=== PATIENT | male | born 1985 | race African-American/Black ===

== ENCOUNTER 2017-05-01 01:04 | Observation (INO) | payer SELFPAY ==
[~2017-05-01] VITALS: Ht 188 cm; Wt 165.3 kg
[2017-05-01 01:49] LABS: HEMATOCRIT 46.7 % (38.0-50.0); MCH 27.7 PG (29.0-34.0); MCHC 34.5 G/DL (30.0-36.0); MCV 80.4 FL (86-99); MEAN PLAT.VOLUME 10.1 uM^3 (9.0-12.4); PLATELET COUNT 243 K/uL (156-360); RBC DIS.WIDTH-CV 13.2 % (11.8-14.6); RBC DIS.WIDTH-SD 37.6 % (39-53); RED BLOOD COUNT 5.81 M/uL (4.00-5.50); WHITE BLOOD COUNT 10.1 K/uL (4.1-10.2)
[2017-05-01 01:58] LABS: CHLORIDE 103 mEq/L (99-109); POTASSIUM 3.6 mEq/L (3.7-5.4); SODIUM 143 mEq/L (136-147)
[2017-05-01 02:00] LABS: GLUCOSE 101 mg/dL (70-99)
[2017-05-01 02:01] LABS: ANION GAP 13 MEQ/L (2-14)
[2017-05-01 02:02] LABS: TOTAL BILIRUBIN 0.4 mg/dL (0.0-1.0)
[2017-05-01 02:03] LABS: ALKALINE PHOSPHATASE 79 IU/L (3-129)
[2017-05-01 02:05] LABS: UREA NITROGEN (BUN) 16 mg/dL (9-23)
[2017-05-01 02:07] LABS: LIPASE 41 U/L (1.0-51.0)
[2017-05-01 02:09] LABS: GFR ESTIMATE (CALCULATED) > 59 mL/min/ (58.99-99999)
[2017-05-01 04:35] LABS: ADD MIUA? YES; BILIRUBIN NEGATIVE; BLOOD NEGATIVE; COLOR YELLOW ((YELLOW)); GLUCOSE (STRIP) NEGATIVE; KETONES NEGATIVE; LEUKOCYTES NEGATIVE; NITRITE NEGATIVE; PROTEIN (STRIP) 100; SPECIFIC GRAVITY 1.033 (1.000-1.030); UROBILINOGEN 0.2 MG/DL (0.2-1.0)
[2017-05-01 04:38] LABS: BACTERIA NONE SEEN /HPF; EPITHELIAL CELLS NONE SEEN /HPF; MUCUS TRACE /LPF; RED BLOOD CELLS 0-5 /HPF (0-5); UCUL ADDED? NO; WHITE BLOOD CELLS 0-5 /HPF (0-5)
[2017-05-01 05:32] LABS: INTER. NORMALIZED RATIO 0.9; PROTHROMBIN TIME 10.4 SEC (10.2-12.9)
[2017-05-01 05:35] LABS: PTT 38.9 SEC (25-37)
[2017-05-01 05:41] LABS: SERUM ETHYL ALCOHOL < 10 mg/dL
[2017-05-01] MEDS ORDERED: ADVIL,NUPRIN,M200 MG PO (07:37)
[2017-05-01 08:07] LABS: HEMATOCRIT 46.9 % (38.0-50.0); MCV 80.3 FL (86-99)
[2017-05-01 15:45] VITALS: BP 182/93
[2017-05-01 17:41] VITALS: BP 170/88
[2017-05-01 19:21] VITALS: BP 145/82
[2017-05-01 20:19] LABS: HEMATOCRIT 46.1 % (38.0-50.0); MCV 79.8 FL (86-99)
[2017-05-01 23:52] VITALS: BP 152/86
[2017-05-02 00:21] LABS: AMPHETAMINE NEGATIVE (500 ng/mL); BARBITURATES NEGATIVE (200 ng/mL); BENZODIAZEPINES NEGATIVE (150 ng/mL); COCAINE NEGATIVE (150 ng/mL); METHADONE NEGATIVE (200 ng/mL); METHAMPHETAMINE NEGATIVE (500 ng/mL); OPIATES (MORPHINE) NEGATIVE (100 ng/mL); OXYCODONE NEGATIVE (100 ng/mL); PHENCYCLIDINE NEGATIVE (25 ng/mL); PROPOXYPHENE NEGATIVE (300 ng/mL); THC CANNABINOIDS PRESUMPTIVE POSITIVE (50 ng/mL); TRICYCLIC ANTIDEPRESSANTS NEGATIVE (300 ng/mL)
[2017-05-02 00:22] LABS: ADD MEDTOX COMMENT Y; INTERNAL CONTROLS VALID? YES
[2017-05-02 02:24] LABS: AMPHETAMINES QUANT VALUE 0 NG/ML; BARBITUATES QUANT VALUE 0 NG/ML; BENZODIAZEPINES QUANT VALUE 0 NG/ML; BENZODIAZEPINES, URINE SCREEN Negative (200 ng/mL); PHENCYCLIDINE QUANT VALUE 0 NG/ML
[2017-05-02 03:54] VITALS: BP 161/91
[2017-05-02 05:21] LABS: HEMATOCRIT 47.2 % (38.0-50.0); MCV 79.7 FL (86-99)
[2017-05-02 09:10] VITALS: BP 176/114
[2017-05-02] MEDS ORDERED: PANTOPRAZOLE SO40 MG PO (10:13)
[2017-05-02] MEDS ORDERED: AMLODIPINE BESY10 MG PO (10:13)
[2017-05-02] MEDS ORDERED: LOPRESSOR25 MG PO (10:14)
== END 2017-05-02 13:00 | disposition home or self-care (01) ==
LOC: EME 01:04 → EDOF 05:27 → 5WEST 05:27 → ENRESERV 05:31 → 5WEST 15:07
PROVIDERS: Emergency Medicine; Physician Assistant Medical
PROC: 0DJ08ZZ Inspection of Upper Intestinal Tract, Via Natural or Artificial Opening Endoscopic (ICD-10-PCS; principal; 2017-05-02)
DX: K92.2 Gastrointestinal hemorrhage, unspecified (principal); K25.9 Gastric ulcer, unspecified as acute or chronic, without hemorrhage or perforation; I16.0 Hypertensive urgency; I10 Essential (primary) hypertension; Z79.1 Long term (current) use of non-steroidal anti-inflammatories (NSAID); F10.10 Alcohol abuse, uncomplicated; F17.200 Nicotine dependence, unspecified, uncomplicated; E66.01 Morbid (severe) obesity due to excess calories; Z68.42 Body mass index [BMI] 45.0-49.9, adult; R10.13 Epigastric pain; R11.2 Nausea with vomiting, unspecified; Z53.09 Procedure and treatment not carried out because of other contraindication; R09.02 Hypoxemia; R05 Cough; R91.8 Other nonspecific abnormal finding of lung field; Z91.19 Patient's noncompliance with other medical treatment and regimen
CPT/HCPCS: 71010; 74177; 80053; 80306 90; 81003; 83690; 84999; 85014; 85018; 85027; 85610; 85730; 93005; 99281; 99285; C9113; G0378; G0480; J0360; J2250; J2270; J2405; J2765; J3411; J7030